=== PATIENT | female | born 1985 | race Caucasian/White ===

== ENCOUNTER → 2016-10-09 | Outpatient (CLI) | payer OTHER | LOC: BMCIMAGING 13:40 | PROVIDERS: ATTEND Registered Nurse General Practice | DX: E01.0 Iodine-deficiency related diffuse (endemic) goiter (principal) | CPT/HCPCS: 76536-PO ==

== ENCOUNTER 2016-12-26 23:21 | Emergency (ER) | payer OTHER ==
[2016-12-26] MEDS ORDERED: NS 2,000 ML IV ONE (23:50)
--- NOTE | 2016-12-26 23:50 | EDPHY ---
H & P Stated Complaint: Dehydration, syncope, vomiting-recent diag Hashimotos. HPI/ROS: HPI CHIEF COMPLAINT: Dehydration, syncope, vomiting HISTORY OF PRESENT ILLNESS: This patient very pleasant 31-year-old female, she denies any significant medical history except for recent diagnosis of Ava' s thyroiditis, she is not on any thyroid medications she presents emergency room after she had 3 separate syncopal episodes. She states that she went for hike today. She felt fine. She went to [employer] this evening. She had 2 glasses of wine. She additionally tells me that she felt fine around 10:00 p.m. she developed a syncopal episode. She did get very lightheaded and tunnel vision. She denies any palpitations, chest pain, shortness of breath, nausea at that time. She then subsequently had 2 more episodes. Limp description by family. She did have urinary incontinence. No seizure activity. She denies chest pain, headache, palpitations. Only preceding symptoms lightheadedness and tunnel vision. Total 3 episodes. She now presents emergency room stating that she vomited multiple times afterwards. Nonbilious nonbloody. No diarrhea. She does tell me that she did not drink lot of fluids today. Past Medical History: Ava's thyroiditis Past Surgical History: Denies recent surgery Social History: Denies daily use drugs alcohol tobacco products. She is a pediatric nurse practitioner. Family History: Noncontributory. ROS REVIEW OF SYSTEMS: A comprehensive 10 point review of systems is otherwise negative aside from elements mentioned in the history of present illness. Exam Constitutional appears well nontoxic, triage nursing summary reviewed, vital signs reviewed, awake/alert. Eyes normal conjunctivae and sclera, EOMI, PERRLA. HENT normal inspection, atraumatic, moist mucus membranes, no epistaxis, neck supple/ no meningismus, no raccoon eyes. Respiratory clear to auscultation bilaterally, normal breath sounds, no respiratory distress, no wheezing. Cardiovascular rate normal, regular rhythm, no murmur, no edema, distal pulses normal. Gastrointestinal soft, non-tender, no rebound, no guarding, normal bowel sounds, no distension, no pulsatile mass. Genitourinary no CVA tenderness. Musculoskeletal no midline vertebral tenderness, full range of motion, no calf swelling, no tenderness of extremities, no meningismus, good pulses, neurovascularly intact. Skin pink, warm, & dry, no rash, skin atraumatic. Neurologic awake, alert and oriented x 3, AAOx3, moves all 4 extremities equally, motor intact, sensory intact, CN II-XII intact, normal cerebellar, normal vision, normal speech. Psychiatric normal mood/affect. Heme/Lymph/Immune no lymphadenopathy. Differential Diagnosis: Includes but is not limited to in a particular order, dehydration, electrolyte disturbance, cardiac arrhythmia, seizure Medical Decision Making: Plan for this patient IV establishment full radiation monitor, IV fluid bolus, check electrolytes, check blood work, troponin, D-dimer , urinalysis, , EKG. Re-evaluation: EKG interpretation by me on record in [employer] system. Impression time of EKG 0025, this is sinus rhythm rate of 72 there is a nonspecific intraventricular conduction delay. Otherwise no signs of ischemia. No signs of WPW or Brug[place]. 0149AM: I re-evaluated this patient she is resting comfortably no acute distress. She has not had any signs of cardiac arrhythmia on the monitor. Vital signs are stable. Her EKG is nonischemic. Troponin negative. D-dimer negative. Electrolytes are appropriate. She is well-hydrated she has been up to the bathroom and urinated. She feels fine. She has not had any chest pain or shortness of breath here. I will allow her to go home. She should follow up outpatient Cardiology for syncope. Return emergency room if there is any worsening symptoms questions or concerns including chest pain, syncope or does not feel well. Source: Patient - Personal History LMP (Females 10-55): 1-7 Days Ago Current Tetanus/Diphtheria Vaccine: Unsure Current Tetanus Diphtheria and Acellular Pertussis (TDAP): Unsure - Medical/Surgical History Hx Asthma: No Hx Chronic Respiratory Disease: No Hx Diabetes: No Hx Cardiac Disease: No Hx Renal Disease: No Hx Cirrhosis: No Hx Alcoholism: No Hx HIV/AIDS: No Hx Splenectomy or Spleen Trauma: No Other PMH: Hashimotos-not on treatment yet. Situational depression. - Social History Smoking Status: Never smoked Constitutional: Initial Vital Signs Temperature (C) 36.8 C 12/26/16 23:27 Heart Rate 81 12/26/16 23:27 Respiratory Rate 18 12/26/16 23:27 Blood Pressure 127/80 H 12/26/16 23:27 O2 Sat (%) 99 12/26/16 23:27 O2 Delivery Mode Room Air Allergies/Adverse Reactions: Pertussis Vaccines Allergy (Severe, Verified 12/26/16 23:32) Anaphylaxis Home Medications: Medication Instructions Recorded Citalopram 12/26/16 Medical Decision Making - Data Points Laboratory Results: Laboratory Results 12/27/16 00:22 12/27/16 00:22 12/27/16 12/27/16 12/27/16 01:24 00:22 00:22 WBC RBC Hgb Hct MCV MCH MCHC RDW Plt Count MPV Neut % (Auto) Lymph % (Auto) Craig % (Auto) Eos % (Auto) Baso % (Auto) Nucleat RBC Rel Count Absolute Neuts (auto) Absolute Lymphs (auto) Absolute Monos (auto) Absolute Eos (auto) Absolute Basos (auto) Absolute Nucleated RBC Immature Gran % Immature Gran # D-Dimer 0.47 ug/mLFEU ug/mLFEU (0.00-0.50) Sodium Potassium Chloride Carbon Dioxide Anion Gap BUN Creatinine Estimated GFR Glucose Calcium Troponin I TSH Beta HCG, Qual NEGATIVE Urine Color YELLOW Urine Appearance CLEAR Urine pH 5.0 (5.0-7.5) Ur Specific [place] 1.019 (1.002-1.030) Urine Protein NEGATIVE (NEGATIVE) Urine Ketones NEGATIVE (NEGATIVE) Urine Blood NEGATIVE (NEGATIVE) Urine Nitrate NEGATIVE (NEGATIVE) Urine Bilirubin NEGATIVE (NEGATIVE) Urine Urobilinogen NEGATIVE EU EU (0.2-1.0) Ur Leukocyte Esterase NEGATIVE (NEGATIVE) Urine Glucose NEGATIVE (NEGATIVE) 12/27/16 12/27/16 00:22 00:22 WBC 9.46 10^3/uL 10^3/uL (3.80-9.50) RBC 4.52 10^6/uL 10^6/uL (4.18-5.33) Hgb 13.7 g/dL g/dL (12.6-16.3) Hct 41.8 % % (38.0-47.0) MCV 92.5 fL fL (81.5-99.8) MCH 30.3 pg pg (27.9-34.1) MCHC 32.8 g/dL g/dL (32.4-36.7) RDW 13.4 % % (11.5-15.2) Plt Count 216 10^3/uL 10^3/uL (150-400) MPV 9.5 fL fL (8.7-11.7) Neut % (Auto) 77.0 % H % (39.3-74.2) Lymph % (Auto) 17.1 % % (15.0-45.0) Craig % (Auto) 4.3 % L % (4.5-13.0) Eos % (Auto) 0.6 % % (0.6-7.6) Baso % (Auto) 0.4 % % (0.3-1.7) Nucleat RBC Rel Count 0.0 % % (0.0-0.2) Absolute Neuts (auto) 7.27 10^3/uL H 10^3/uL (1.70-6.50) Absolute Lymphs (auto) 1.62 10^3/uL 10^3/uL (1.00-3.00) Absolute Monos (auto) 0.41 10^3/uL 10^3/uL (0.30-0.80) Absolute Eos (auto) 0.06 10^3/uL 10^3/uL (0.03-0.40) Absolute Basos (auto) 0.04 10^3/uL 10^3/uL (0.02-0.10) Absolute Nucleated RBC 0.00 10^3/uL 10^3/uL (0-0.01) Immature Gran % 0.6 % % (0.0-1.1) Immature Gran # 0.06 10^3/uL 10^3/uL (0.00-0.10) D-Dimer Sodium 145 mEq/L H mEq/L (134-144) Potassium 4.0 mEq/L mEq/L (3.5-5.2) Chloride 105 mEq/L mEq/L (97-110) Carbon Dioxide 23 mEq/l mEq/l (22-31) Anion Gap 17 mEq/L H mEq/L (8-16) BUN 17 mg/dL mg/dL (7-23) Creatinine 0.8 mg/dL mg/dL (0.6-1.0) Estimated GFR > 60 Glucose 90 mg/dL mg/dL (70-100) Calcium 9.7 mg/dL mg/dL (8.5-10.4) Troponin I < 0.012 ng/mL ng/mL (0.000-0.034) TSH 7.120 uIU/mL H uIU/mL (0.465-4.680) Beta HCG, Qual Urine Color Urine Appearance Urine pH Ur Specific [place] Urine Protein Urine Ketones Urine Blood Urine Nitrate Urine Bilirubin Urine Urobilinogen Ur Leukocyte Esterase Urine Glucose Medications Given: Discontinued Medications Sodium Chloride (Ns) 2,000 mls @ 0 mls/hr IV EDNOW ONE; Wide Open PRN Reason: Protocol Stop: 12/26/16 23:51 Last Admin: 12/27/16 00:10 Dose: 2,000 mls Promethazine HCl (Phenergan) 6.25 mg IVP ONCE ONE Stop: 12/27/16 00:28 Last Admin: 12/27/16 00:45 Dose: 6.25 mg Departure - Departure Disposition: Home, Routine, Self-Care Clinical Impression: Syncope Qualifiers: Syncope type: unspecified Qualified Code(s): R55 - Syncope and collapse Condition: Good Instructions: Syncope (ED) Additional Instructions: 1. Stay well-hydrated drink lots of fluids. 2. Return emergency room if you have any worsening symptoms questions or concerns. 3. Please follow up with Cardiology call their for follow-up appointment. Referrals: Anna Meeks FNP [Primary Care Provider] - As per Instructions Dai Gould MD [Medical Doctor] - As per Instructions
[2016-12-27 00:27] LABS: % IMMATURE GRANULYOCYTES 0.6 % (0.0-1.1); ABSOLUTE IMMATURE GRANULOCYTES 0.06 10^3/uL (0.00-0.10); ADD DIFF? NO; ADD MORPH? NO; ADD SCAN? NO; ATYPICAL LYMPHOCYTE FLAG 0 (0-99); FRAGMENT RBC FLAG 0 (0-99); HEMATOCRIT 41.8 % (38.0-47.0); HEMOGLOBIN 13.7 g/dL (12.6-16.3); LEFT SHIFT FLG 0 (0-99); LIPEMIA HEMOLYSIS FLAG 80 (0-99); MEAN CELL HEMOGLOBIN 30.3 pg (27.9-34.1); MEAN CELL HEMOGLOBIN CONCENTR. 32.8 g/dL (32.4-36.7); MEAN CELL VOLUME 92.5 fL (81.5-99.8); MEAN PLATELET VOLUME 9.5 fL (8.7-11.7); PLATELET CLUMPS FLAG 0 (0-99); PLATELET COUNT 216 10^3/uL (150-400); RED BLOOD CELL COUNT 4.52 10^6/uL (4.18-5.33); RED CELL DISTRIBUTION WIDTH 13.4 % (11.5-15.2)
[2016-12-27] MEDS ORDERED: PROMETHAZINE HCL 25 MG/ML INJ IVP ONE (00:27)
--- NOTE | 2016-12-27 00:27 | CPEKG ---
Heart Rate: 72 RR Interval: 833 P-R Interval: 160 QRSD Interval: 118 QT Interval: 416 QTC Interval: 456 P [place]: 76 QRS [place]: 79 T Wave [place]: 39 EKG Severity - ABNORMAL ECG - EKG Impression: SINUS RHYTHM EKG Impression: NONSPECIFIC INTRAVENTRICULAR CONDUCTION DELAY Electronically Signed By: Rick Campos 28-Dec-2016 16:22:25
[2016-12-27 00:46] LABS: ANION GAP 17 mEq/L (8-16); CALCIUM 9.7 mg/dL (8.5-10.4); CARBON DIOXIDE 23 mEq/l (22-31); CHLORIDE 105 mEq/L (97-110); CREATININE 0.8 mg/dL (0.6-1.0); GLOMERULAR FILTRATION RATE > 60; GLUCOSE 90 mg/dL (70-100); SODIUM 145 mEq/L (134-144)
[2016-12-27 00:49] VITALS: TEMP 97.9
[2016-12-27 00:58] LABS: TROPONIN I < 0.012 ng/mL (0.000-0.034)
[2016-12-27 01:31] LABS: COLOR YELLOW; LEUKOCYTE ESTERASE,URINE NEGATIVE (NEGATIVE); NITRITE,URINE NEGATIVE (NEGATIVE)
[2016-12-27 02:00] VITALS: BP 117/93; PULSE 83; RESP 16; O2SAT 95
== END 2016-12-27 01:59 | disposition home or self-care (01) ==
DX: R55 Syncope and collapse (principal); E86.9 Volume depletion, unspecified
CPT/HCPCS: 96374; J2550

== ENCOUNTER → 2017-02-02 | Outpatient (CLI) | payer OTHER | LOC: BMCIMAGING 14:19 | PROVIDERS: ATTEND Registered Nurse General Practice | DX: Z20.1 Contact with and (suspected) exposure to tuberculosis (principal) ==